=== PATIENT | male | born 1985 | race Caucasian/White ===

== ENCOUNTER → 2016-08-12 | Outpatient (CLI) | payer OTHER ==
--- NOTE | 2016-08-12 10:13 | US ---
EXAMINATION TYPE: US abdomen complete DATE OF EXAM: 08/12/2016 7:28 AM COMPARISON: NONE CLINICAL HISTORY: US. Abnormal liver function EXAM MEASUREMENTS: Liver Length: 16.2cm Gallbladder Wall: 0.3cm CBD: 0.3cm Spleen: 13.8cm Right Kidney: 11.0 x 5.8 x 4.0cm Left Kidney: 10.8 x 5.0 x 4.5cm ANATOMY: TECHNOLOGIST IMPRESSION: Pancreas: visualized portions appear wnl Liver: Heterogeneously hyperechoic limiting evaluation for focal masses. No intrahepatic ductal dilat ation is seen. Gallbladder: no evidence of shadowing mobile stones Evidence for sonographic Hernandez's sign: No CBD: appears wnl Spleen: enlarged without focal intrasplenic mass. Right Kidney: No evidence of hydronephrosis or mass Left Kidney: No evidence of hydronephrosis or mass Upper IVC: appears wnl Abd Aorta: visualized portions appear wnl The intrahepatic portion of the IVC and visualized abdominal aorta are within normal limits. There i s no evidence of cholelithiasis. Common bile duct is unremarkable. The visualized portions of the p ancreas are homogenous. The spleen is enlarged. Kidneys are symmetric and free of hydronephrosis. No renal lesions are seen on images saved. IMPRESSION: Heterogeneity of liver could reflect diffuse fatty infiltration or underlying hepatocellu lar disease. Imaging guided random biopsy for tissue analysis can be performed if desired.
== END | disposition home or self-care (01) ==
LOC: RADUSWWP 06:56
PROVIDERS: ATTEND Internal Medicine
DX: R94.5 Abnormal results of liver function studies (principal)
CPT/HCPCS: 76700

== ENCOUNTER → 2017-12-09 | Outpatient (CLI) | payer OTHER ==
--- NOTE | 2017-12-09 11:42 | CONS ---
CONSULTATION DATE OF SERVICE: 12/09/2018 A 32-year-old gentleman who has been evaluated in the Sleep Center for significant excessive daytime sleepiness and snoring. HISTORY OF PRESENT ILLNESS/SLEEP WAKE EVALUATION: Patient sleeps quite a long period of time, usually from midnight until 12 noon on weekdays and the same schedule on weekends. Usually, no problems with falling asleep. No TV in bedroom. During the sleep patient snores loudly and wakes up with dry mouth, panic attacks, sweating, palpitations up to 5 times with 1 episode of nocturia. In the morning, patient wakes up tired, has difficulties to pay attention, worry about his sleep, has problems with memory, concentration, irritability, depression and anxiety. [place] Sleepiness Scale significantly increased to 14. Positive history of hypnagogic hallucinations. He had either had several episodes of sleep off paralysis. No history of cataplexy. PAST MEDICAL HISTORY: Positive for hypothyroidism, hyperlipidemia, depression, anxiety, bipolar, diabetes mellitus, allergy. PAST SURGICAL HISTORY: Surgery for nasal septum deviation in 2007. MEDICATIONS: Lamotrigine, Latuda, Trintellix, levothyroxine, Vistaril, Claritin, Lamictal, Lipitor, metformin, vitamin D3 supplement. SOCIAL HISTORY: Negative for smoking or using alcohol. FAMILY HISTORY: Heart problems, hyperlipidemia, stroke, arthritis, asthma, sinus problems, sleep apnea, snoring, pneumonia, headaches, cancer, insomnia, diabetes, acid reflux, nasal polyps, thyroid problems, anemia, mental illness. REVIEW OF SYSTEMS: Multiple awakenings from sleep, sleepiness during the day. PHYSICAL EXAM: gentleman without distress. BP 119/76, HR 80, RR 16, height 5, 11, weight 191, BMI 26.6, temperature 98.0, oxygen saturation at room air 96%, oropharynx moderately low position of soft palate. Slight restriction of nasal breathing. Neck 15-3/4 inches in circumference. Neck Supple, no JVD. Thyroid is not palpable. LUNGS Clear to percussion and to auscultation. Good air exchange. No wheezing or rhonchi. HEART S1, S2 regular. No murmurs, gallops, or rubs. ABDOMEN Soft and nontender. Bowel sounds are present. No organomegaly appreciated. EXTREMITIES No clubbing or cyanosis. CASE SUPERVISOR Awake, alert, and oriented X3. Cranial nerves 2 to 7 intact. There is no fasciculation or atrophy. noted. No focal deficits observed. IMPRESSION: 1. Loud snoring, multiple awakenings from sleep, moderately low position of soft palate. 2. Obstructive sleep apnea-hypopnea syndrome. 3. Positive history of hypnagogic hallucinations, sleep paralysis. [place] Sleepiness Scale significantly increased to 14. Patient sleeps for 12 hours at night. Differential diagnosis includes hypersomnia including narcolepsy and idiopathic hypersomnia. 4. History of depression. 5. History of anxiety. 6. History of bipolar. 7. Diabetes mellitus. 8. Allergy. 9. Hypothyroidism. 10.Hyperlipidemia. 11.Status post surgical treatment of nasal septum deviation in 2007. PLAN: 1. Polysomnography for evaluation of patient's breathing during sleep. 2. CPAP/BiPAP titration if sleep study confirms obstructive sleep apnea-hypopnea syndrome. 3. Multiple spleen latency test if sleep study will be negative for obstructive sleep apnea-hypopnea syndrome. 4. Preferable position during sleep on the side. 5. No driving if patient feels any sleepiness. 6. I will see patient for follow up visit to explain results of testing and following plan. Thank you very much for allowing me to participate in the management of your patient. Sincerely, Scott Enriquez MD, PhD, FAASM Diplomat of [employer] Railroad Design Consultant of [facility] [place] . MMODL / ROSA MARIAN: [id number] /
== END | disposition home or self-care (01) ==
LOC: SLEEP 10:22
PROVIDERS: ATTEND Internal Medicine
DX: G47.33 Obstructive sleep apnea (adult) (pediatric) (principal); M27.8 Other specified diseases of jaws; F32.9 Major depressive disorder, single episode, unspecified; T78.40XD Allergy, unspecified, subsequent encounter; F41.9 Anxiety disorder, unspecified; E11.9 Type 2 diabetes mellitus without complications; E03.9 Hypothyroidism, unspecified; E78.5 Hyperlipidemia, unspecified; Z98.890 Other specified postprocedural states; Z79.84 Long term (current) use of oral hypoglycemic drugs; Z87.39 Personal history of other diseases of the musculoskeletal system and connective tissue; Z79.899 Other long term (current) drug therapy
CPT/HCPCS: 99211

== ENCOUNTER → 2018-02-03 | Outpatient (CLI) | payer OTHER ==
--- NOTE | 2018-02-03 13:30 | SFUN ---
SLEEP CENTER FOLLOW UP NOTE DATE OF SERVICE: 02/03/2018 A 32-year-old gentleman who had been followed in sleep center to discuss results of sleep studies and following plan. I discussed results of sleep studies with the patient and family in detail. Polysomnogram, night polysomnogram did not show any respiratory abnormalities at all. Apnea-hypopnea index was 0. Lowest oxygen level was 94.0%. Sleep efficiency was decreased to 65.9% although latency to sleep onset was normal 16 minutes. Amount of REM sleep was decreased to 12.3%. Totally, patient slept for 4 hours and 40 minutes. Multiple sleep latency test on the following day consisted from 5 naps. The patient fell asleep on all naps. Mean sleep latency was 7.3 minutes. No sleep onset REM periods have been documented. MEDICATIONS: Lamotrigine, Latuda, Trintellix, levothyroxine, Vistaril, Claritin, Lamictal, Lipitor, metformin, vitamin D3 supplement. PHYSICAL EXAMINATION: During physical exam, patient in no distress. VITAL SIGNS: BP 105/59, HR 74, RR 16, temperature 97.5, oxygen saturation room air 96%. HEENT: PERRLA, EOMI, evaluation of oropharynx showed tongue protrudes midline. Neck Supple, no JVD. Thyroid is not palpable. LUNGS: Clear to percussion and to auscultation. Good air exchange. No wheezing or rhonchi. HEART: S1, S2 regular. No murmurs, gallops, or rubs. ABDOMEN: Soft and nontender. Bowel sounds are present. No organomegaly appreciated. EXTREMITIES: No clubbing or cyanosis. MANAGER PARTY: Awake, alert, and oriented X3. Cranial nerves 2 to 7 intact. There is no fasciculation or atrophy. noted. No focal deficits observed. IMPRESSION: 1. No significant respiratory abnormalities have been documented during the sleep study. 2. Multiple sleep latency test showed short sleep latency, but the patient did not sleep normal amount of hours on the previous night in sleep center. Naps started after he was awakened at 6 a.m. and usually at home he sleeps until 10 a.m. 3. History of depression. 4. History of anxiety. 5. History of bipolar. 6. Diabetes mellitus. 7. Allergy. 8. Hypothyroidism. 9. Hyperlipidemia. 10.Status post surgical treatment of nasal septum deviation in 2007. PLAN: 1. Repeat polysomnogram with following multiple sleep latency test to finish polysomnogram at 10 a.m. in the morning. 2. Sleep hygiene with regular time in bed for at least 8 hours. 3. As much as possible exposure to the sunlight in the morning to move sleep cycle earlier. 4. No driving if feeling any sleepiness. Thank you very much for allowing me to participate in management of your patient. Sincerely, Scott Enriquez MD, PhD, FAASM Diplomat of [employer] Medicine Substation Design Draftsperson of [facility] [place] MMODL / IJN: [id number] /
== END | disposition home or self-care (01) ==
LOC: SLEEP 11:44
PROVIDERS: ATTEND Internal Medicine
DX: G47.9 Sleep disorder, unspecified (principal); F41.9 Anxiety disorder, unspecified; F32.9 Major depressive disorder, single episode, unspecified; E11.9 Type 2 diabetes mellitus without complications; E78.5 Hyperlipidemia, unspecified; E03.9 Hypothyroidism, unspecified; Z98.890 Other specified postprocedural states; Z79.899 Other long term (current) drug therapy; Z79.84 Long term (current) use of oral hypoglycemic drugs; Z88.9 Allergy status to unspecified drugs, medicaments and biological substances

== ENCOUNTER → 2018-05-05 | Outpatient (CLI) | payer OTHER ==
--- NOTE | 2018-05-05 13:23 | SFUN ---
SLEEP CENTER FOLLOW UP NOTE DATE OF SERVICE: 05/05/2018 This 32-year-old gentleman has been followed in sleep center to discuss results of the sleep studies and following plan. We discussed results of the sleep studies with the patient and family in details. Polysomnogram did not show any abnormalities of respiration. Apnea-hypopnea index was 0. Oxygenation during the sleep was normal. Patient slept more than 6 hours. On the following day, the patient had multiple sleep latency test which showed mean sleep latency 8.8 minutes. The patient fell asleep on 3 naps and did not fall asleep on fourth nap. No sleep onset REM periods have been documented. Patient continued to feel sleepiness during the day and that related also to the driving. [place] Sleepiness Scale increased to 13. MEDICATIONS: His present medications are lamotrigine, Latuda, Trintellix, levothyroxine, Vistaril, Claritin, Lipitor, metformin, vitamin D. PHYSICAL EXAM: During physical exam, patient in no distress. VITAL SIGNS: BP 113/68, HR 76, RR 16, weight 189, height 5 feet 11 inches, body mass index 26.3, oxygen saturation room air 95%. HEENT:PERRLA, EOMI, evaluation of oropharynx showed tongue protrudes midline. NECK: Supple, no JVD. Thyroid is not palpable. LUNGS: Clear to percussion and to auscultation. Good air exchange. No wheezing or rhonchi. HEART: S1, S2 regular. No murmurs, gallops, or rubs. ABDOMEN: Soft and nontender. Bowel sounds are present. No organomegaly appreciated. EXTREMITIES: No clubbing or cyanosis. FRONT END WEB DESIGNER: Awake, alert, and oriented X3. Cranial nerves 2 to 7 intact. There is no fasciculation or atrophy. noted. No focal deficits observed. IMPRESSION: 1. No significant respiratory abnormalities documented during the sleep. 2. Multiple sleep latency test showed shortening of sleep latency to 8.8 minutes, which is slightly longer than requirements for narcolepsy. Previous multiple sleep latency test showed mean sleep latency 7.3 minutes. Could be idiopathic hypersomnia and also sleepiness related to medications. 3. History of depression. 4. History of anxiety. 5. Bipolar. 6. Diabetes mellitus. 7. Allergy. 8. Hypothyroidism. 9. Hyperlipidemia. 10.Status post surgical treatment for nasal septum deviation in 2007. PLAN: 1. We will consider to start the patient on daytime stimulants to prevent excessive daytime sleepiness. 2. We will discuss plan with the patient's psychiatrist. 3. Sleep hygiene with regular time in bed for at least 8 hours. 4. Extreme precaution to driving. No driving if feeling any sleepiness. 5. As much as possible exposure to sunlight in the morning. Sincerely, Scott Enriquez MD, PhD, FAASM Diplomat of [employer] Load Tallier of [facility] [place] MMODL / IJN: [id number] /
== END | disposition home or self-care (01) ==
LOC: SLEEP 11:40
PROVIDERS: ATTEND Internal Medicine
DX: G47.10 Hypersomnia, unspecified (principal); F32.9 Major depressive disorder, single episode, unspecified; F41.9 Anxiety disorder, unspecified; E11.9 Type 2 diabetes mellitus without complications; T78.40XA Allergy, unspecified, initial encounter; E03.9 Hypothyroidism, unspecified; E78.5 Hyperlipidemia, unspecified; Z98.890 Other specified postprocedural states; Z79.899 Other long term (current) drug therapy; Z79.84 Long term (current) use of oral hypoglycemic drugs

== ENCOUNTER → 2018-07-14 | Outpatient (CLI) | payer OTHER ==
--- NOTE | 2018-07-14 16:31 | PN ---
PROGRESS NOTE DATE OF SERVICE: 07/14/2018 This patient is a 33-year-old gentleman who has been followed in Sleep Center for treatment of significant excessive daytime sleepiness. At present he is on treatment with Ritalin 5 mg once a day in the morning, and with this regimen he feels better and he does not have significant excessive daytime sleepiness. Today his [place] Sleepiness Scale is 11. MEDICATIONS: 1. Latuda. 2. Trintellix. 3. Levothyroxine. 4. Vistaril. 5. Claritin. 6. Lipitor. 7. Metformin. 8. Vitamin D. PHYSICAL EXAMINATION: GENERAL: A pleasant patient in no distress. VITAL SIGNS: BP 120/70, HR 74, RR 16, height 5 feet 11 inches, weight 202, body mass index 28.1, temperature 98.0, oxygen saturation at room air 97%. HEENT: PERRLA, EOMI. Evaluation of oropharynx showed tongue protrudes midline. Extremely low position of soft palate. NECK: Supple. No JVD. Thyroid is not palpable. LUNGS: Clear to percussion and to auscultation. Good air exchange. No wheezing or rhonchi. HEART: S1, S2 regular. No murmurs, gallops or rubs. ABDOMEN: Soft and nontender. Bowel sounds are present. No organomegaly. EXTREMITIES: No clubbing or cyanosis. EARTH MOVING TECHNICIAN: Awake, alert, and oriented X3. Cranial nerves 2 to 7 intact. There is no fasciculation or atrophy. noted. No focal deficits observed. IMPRESSION: 1. Hypersomnia. Differential diagnosis includes narcolepsy and idiopathic hypersomnia. 2. History of depression. 3. History of anxiety. 4. Bipolar. 5. Diabetes mellitus. 6. Allergies. 7. Hypothyroidism. 8. Hyperlipidemia. 9. Status post surgical treatment for nasal septum deviation in 2002. PLAN: 1. Patient will continue to use Ritalin 5 mg in the morning only. 2. Sleep hygiene with regular time in bed for at least 8 hours. 3. No driving if feeling any sleepiness. Thank you very much for allowing me to participate in the management of your patient. Sincerely, Scott Enriquez MD, PhD, FAASM Diplomat of [employer] [employer]ties [employer] [employer] Medicine Drapery And Upholstery Measurer of [facility] [place] MMODL / IJN: [id number] /
== END ==
LOC: SLEEP 15:25
PROVIDERS: ATTEND Internal Medicine
DX: G47.10 Hypersomnia, unspecified (principal); F32.9 Major depressive disorder, single episode, unspecified; F41.9 Anxiety disorder, unspecified; F31.9 Bipolar disorder, unspecified; E11.9 Type 2 diabetes mellitus without complications; T78.40XA Allergy, unspecified, initial encounter; E03.9 Hypothyroidism, unspecified; E78.5 Hyperlipidemia, unspecified; Z98.890 Other specified postprocedural states; Z79.899 Other long term (current) drug therapy; Z79.84 Long term (current) use of oral hypoglycemic drugs

== ENCOUNTER 2023-02-07 20:42 | Emergency (ER) | payer OTHER ==
[2023-02-07 20:48] VITALS: BP 134/87; PULSE 90; RESP 16; TEMP 98
[2023-02-07] MEDS ORDERED: DIPH,PERTUS(ACELL)TETVAC-LF 0.5 ML VIAL IM ONE (21:17)
--- NOTE | 2023-02-07 21:23 | ED ---
General Adult HPI - General Chief complaint: Wound/Laceration Stated complaint: Laceration on left pinky Time Seen by Provider: 02/07/23 21:13 Source: patient Mode of arrival: ambulatory Limitations: no limitations - History of Present Illness Initial comments: 29-year-old male presents to the ED with chief complaint of laceration. Patient states that he was trimming hedges when the plastic parts fabricator trimmer slipped out of his hand. States that it fell and caught his left fifth finger. Now notes a laceration to the left fifth finger. Tetanus status unknown. No other complaints. - Related Data Home Medications Medication Instructions Recorded Confirmed Fexofenadine/Pseudoephedrine 1 tab PO BID PRN 03/19/16 03/20/16 [Taniya-D 12 Hour Tablet] Previous Rx's Medication Instructions Recorded Benztropine Mesylate [Cogentin] 1 mg PO PC-SUPPER #30 tab 04/01/16 LORazepam [Ativan] 1 mg PO Q8HR PRN #30 tab 04/01/16 PARoxetine [Paxil] 20 mg PO DAILY #30 tab 04/01/16 Paliperidone [Invega] 6 mg PO HS #30 tab.er.24 04/01/16 QUEtiapine [SEROquel] 100 mg PO HS #60 tab 04/01/16 traZODone HCL [Desyrel] 50 mg PO HS #30 tab 04/01/16 Allergies Allergy/AdvReac Type Severity Reaction Status Date / Time cat pelt standardized Allergy Unknown Verified 03/20/16 01:43 allergenic ex corn Allergy Rash/Hives Verified 03/20/16 01:43 gluten Allergy Unknown Verified 03/20/16 01:43 grape Allergy Unknown Verified 03/20/16 01:43 grass pollen-perennial rye, Allergy Unknown Verified 03/20/16 01:43 standar peanut Allergy Unknown Verified 03/20/16 01:43 soy Allergy Unknown Verified 03/20/16 01:43 tomato Allergy Unknown Verified 03/20/16 01:43 wheat Allergy Unknown Verified 03/20/16 01:43 basil AdvReac Unknown Verified 03/19/16 20:40 Simms's Yeast Allergy Unknown Uncoded 03/19/16 20:40 mold Allergy Unknown Uncoded 03/19/16 20:40 [place] Allergy Unknown Uncoded 03/19/16 20:40 garlic AdvReac Unknown Uncoded 03/19/16 20:40 Review of Systems ROS Statement: Those systems with pertinent positive or pertinent negative responses have been documented in the HPI. ROS Other: All systems not noted in ROS Statement are negative. Past Medical History Past Medical History: No Reported History Additional Past Medical History / Comment(s): Pt has severe allergies to simms's yeast, cat hair, corn, egg whites, gluten, grape, grass pollen, mold, peanuts, tomatoe, trees, turkey, weeds, and wheat flour. History of Any Multi-Drug Resistant Organisms: None Reported Past Surgical History: No Surgical Hx Reported Additional Past Surgical History / Comment(s): nasal septal surgery Past Anesthesia/Blood Transfusion Reactions: No Reported Reaction Past Psychological History: Anxiety, Bipolar, Depression Past Alcohol Use History: Rare Past Drug Use History: None Reported - Past Family History Father Family Medical History: Cancer, Coronary Artery Disease (CAD) Additional Family Medical History / Comment(s): Dad has had skin ca. Mother Additional Family Medical History / Comment(s): Hypoglycemia General Exam Limitations: no limitations General appearance: alert, in no apparent distress Head exam: Present: atraumatic, normocephalic Eye exam: Present: normal appearance Respiratory exam: Present: normal lung sounds bilaterally Cardiovascular Exam: Present: regular rate, normal rhythm GI/Abdominal exam: Present: soft Extremities exam: Present: other (Left fifth finger shows laceration. Full active range of motion. Strength and sensation intact.) Neurological exam: Present: alert, oriented X3 Psychiatric exam: Present: normal affect, normal mood Skin exam: Present: warm, dry Course Vital Signs 02/07/23 20:43 Temperature 98 F Pulse Rate 90 Respiratory 16 Rate Blood Pressure 134/87 O2 Sat by Pulse 98 Oximetry Procedures - Laceration Laceration #1 Site: hand Description: irregular Depth: simple, single layer Anesthesia Technique: local infiltration, nerve block Amount (mls): 6 Pre-repair: wound explored, irrigated extensively Type of Sutures: nylon Size of Sutures: 4-0, 5-0 Number of Sutures: 8 Medical Decision Making - Medical Decision Making Was pt. sent in by a medical professional or institution (, PA, ARTISAN PLASTERER, urgent care, hospital, or group home...) When possible be specific @ -No Did you speak to anyone other than the patient for history (EMS, parent, family, police, friend...)? What history was obtained from this source @ -No Did you review nursing and triage notes (agree or disagree)? Why? @ -I reviewed and agree with nursing and triage notes Were old charts reviewed (outside hosp., previous admission, EMS record, old EKG, old radiological studies, urgent care reports/EKG's, group home records)? Report findings @ -No old charts were reviewed Differential Diagnosis (chest pain, altered mental status, abdominal pain women, abdominal pain men, vaginal bleeding, weakness, fever, dyspnea, syncope, headache, dizziness, GI bleed, back pain, seizure, CVA, palpatations, mental health, musculoskeletal)? @ -Acute bony injury, acute tendon injury, tenderness. This is not meant to be an all-inclusive list. EKG interpreted by me (3pts min.). @ -As above X-rays interpreted by me (1pt min.). @ -X-ray shows no acute finding. CT interpreted by me (1pt min.). @ -None done U/S interpreted by me (1pt. min.). @ -None done What testing was considered but not performed or refused? (CT, X-rays, U/S, labs)? Why? @ -None What meds were considered but not given or refused? Why? @ -None Did you discuss the management of the patient with other professionals (professionals i.e. , PA, ARTISAN PLASTERER, lab, RT, psych nurse, social media intern, traffic routing engineer, teacher, radio officer, case resolution specialist)? Give summary @ -No Was smoking cessation discussed for >3mins.? @ -No Was critical care preformed (if so, how long)? @ -No Were there social determinants of health that impacted care today? How? (Homelessness, low income, unemployed, alcoholism, drug addiction, transportation, low edu. Level, literacy, decrease access to med. care, usp, rehab)? @ -No Was there de-escalation of care discussed even if they declined (Discuss DNR or withdrawal of care, Hospice)? DNR status @ -No What co-morbidities impacted this encounter? (DM, HTN, Smoking, COPD, CAD, Cancer, CVA, ARF, Chemo, Hep., AIDS, mental health diagnosis, sleep apnea, morbid obesity)? @ -None Was patient admitted / discharged? Hospital course, mention meds given and route, prescriptions, significant lab abnormalities, going to OR and other pertinent info. @ Discharged. Patient had laceration repaired. Please see her note for further details. x-ray showed no acute finding. Able to actively flex and extend the finger with full range of motion. No concern for acute tendon injury. After laceration., Covered with bacitracin and bandaged. Discussed proper wound care. Discussed return precautions with patient who verbalizes agreement. Undiagnosed new problem with uncertain prognosis? @ -No Drug Therapy requiring intensive monitoring for toxicity (Heparin, Nitro, Insulin, Cardizem)? @ -No Were any procedures done? @ -Yes, laceration repair Diagnosis/symptom? @ -Left fifth finger laceration Acute, or Chronic, or Acute on Chronic? @ -Acute Uncomplicated (without systemic symptoms) or Complicated (systemic symptoms)? @ -Uncomplicated Side effects of treatment? @ -No Exacerbation, Progression, or Severe Exacerbation? @ -No Poses a threat to life or bodily function? How? (Chest pain, [place], [place], pneumonia, PE, COPD, DKA, ARF, appy, cholecystitis, CVA, Diverticulitis, Homicidal, Suicidal, threat to staff... and all critical care pts) @ -No Disposition Clinical Impression: Laceration of left little finger w/o foreign body w/o damage to nail Disposition: HOME SELF-CARE Condition: Good Instructions (If sedation given, give patient instructions): Care For Your S titches (ED) Additional Instructions: Please return to the Emergency Department if symptoms worsen or any other concerns. Is patient prescribed a controlled substance at d/c from ED?: No Referrals: Abner Gilbert MD [Primary Care Provider] - 1-2 days Time of Disposition: 22:58
--- NOTE | 2023-02-07 21:54 | XR ---
EXAMINATION TYPE: XR finger LT DATE OF EXAM: 02/07/2023 9:44 PM INDICATION: Patient age:Male; 37 years old; Reason for study: r/o osseous injury l 5th finger; PHH. COMPARISON: None TECHNIQUE: Frontal, lateral and oblique views of the left finger were obtained. FINDINGS: Soft tissue swelling on the dorsal aspect of left fifth digit without radiopaque foreign helga dy. Normal alignment of the visualized joints. No acute osseous pathology is identified. IMPRESSION: Left fifth digit soft tissue laceration without radiopaque foreign body or fracture.
[2023-02-07] MEDS ORDERED: LIDOCAINE 1% INJ 10MG/ML (30 ML VIAL-PF) SQ ONE (21:57)
[2023-02-07] MEDS ORDERED: BACITRACIN OINT 1 EACH PACKET TOPICAL ONE (22:53)
== END 2023-02-07 23:19 | disposition home or self-care (01) ==
LOC: EC 20:42
DX: S61.217A Laceration without foreign body of left little finger without damage to nail, initial encounter (principal); Z86.59 Personal history of other mental and behavioral disorders; Z91.018 Allergy to other foods; Z88.8 Allergy status to other drugs, medicaments and biological substances; Z23 Encounter for immunization; W29.3XXA Contact with powered garden and outdoor hand tools and machinery, initial encounter
CPT/HCPCS: 73140; 90715; 99283; 90471; 12001; J2001

== ENCOUNTER → 2023-03-23 | Outpatient (CLI) | payer OTHER ==
--- NOTE | 2023-03-23 12:56 | XR ---
EXAMINATION TYPE: XR lumbar spine 2 or 3V DATE OF EXAM: 03/23/2023 CLINICAL HISTORY: pain TECHNIQUE: Three views of the lumbar spine are submitted. COMPARISON: None. FINDINGS: There are 5 lumbar type vertebral bodies identified. The lumbar spine shows satisfactory alignment w ithout evidence of acute fracture or dislocation. There is bilateral spondylolysis at L3 with grade 1 anterolisthesis measuring 3 mm. IMPRESSION: Grade 1 anterolisthesis L3 on L4 related to spondylolysis.
== END | disposition home or self-care (01) ==
LOC: RADXRMAIN 11:45
PROVIDERS: ATTEND Internal Medicine
DX: M43.16 Spondylolisthesis, lumbar region (principal)
CPT/HCPCS: 72100